=== PATIENT | male | born 1980 | race Two or more races ===

== ENCOUNTER 2019-02-27 07:50 | Outpatient (CLI) | payer OTHER | END 2019-02-27 08:03 | disposition home or self-care (01) | LOC: NUCLEAR 07:50 | DX: K81.1 Chronic cholecystitis (principal) | CPT/HCPCS: 78227; A9537 ==

== ENCOUNTER 2019-05-16 06:52 | Day surgery (SDC) | payer OTHER ==
[~2019-05-16 06:52] MED LIST: PROTONIX20 MG PO
[2019-05-16] MEDS ORDERED: PERCOCET 5-3251 EACH PO (12:24)
== END 2019-05-16 16:25 | disposition home or self-care (01) ==
LOC: CIR.AMB 06:52
DX: K80.10 Calculus of gallbladder with chronic cholecystitis without obstruction (principal)